=== PATIENT | female | born 1955 | race Caucasian/White ===

== ENCOUNTER 2021-04-26 14:34 | Emergency (ER) | payer MEDICARE, SELFPAY ==
[2021-04-26] VITALS (8 sets, daily range): BP systolic 150–200; BP diastolic 75–97; PULSE 59–75; RESP 12–20; TEMP 36–37.1; O2SAT 95–99; BMI 26.4
--- NOTE | ~2021-04-26 | CT_ITS ---
EXAMINATION: CT ANGIOGRAM OF THE CHEST WITH AND WITHOUT CONTRAST (CT PULMONARY ANGIOGRAM FOR PE) CLINICAL INFORMATION: Shortness of breath, cancer COMPARISON: None TECHNIQUE: Prior to contrast administration, noncontrast localization images were obtained. Subsequently, multidetector volumetric imaging was performed from the thoracic inlet to below the diaphragms following the administration of 80 mL Omnipaque 350 intravenous contrast. No contrast reaction reported Sagittal, coronal, and MIP oblique sagittal reformatted images were obtained on the CT workstation, uploaded to PACS, and reviewed. This CT examination was performed using dose optimization techniques as appropriate, variously including the following: *Automated exposure control *Adjustment of mA and/or kV according to patient size (this includes techniques or standardized protocols for targeted exams where dose is matched to indication/reason for exam; i.e. extremities or head) *Use of iterative reconstruction technique Total exam dose-length product 292 mGy-cm FINDINGS: QUALITY OF STUDY/CONTRAST BOLUS: Satisfactory. PULMONARY ARTERIES: No central or segmental pulmonary emboli. THORACIC AORTA: No aneurysm or dissection. LUNG: Low lung volumes with bibasilar atelectasis. No focal consolidation or mass. Mild bronchial wall thickening. PLEURA: No pleural effusion or pneumothorax. MEDIASTINUM: Normal heart size. No pericardial effusion. No hilar or mediastinal lymphadenopathy. No evidence of septal bowing or right heart strain. CHEST WALL/AXILLA: No axillary or internal mammary lymphadenopathy. OSSEOUS STRUCTURES: No acute or suspicious osseous abnormality. UPPER ABDOMEN: No adrenal mass. No reflux of contrast into the hepatic veins to suggest elevated right heart pressures. CT/CT angio chest PE protocol IMPRESSION: No pulmonary embolus seen.
--- NOTE | ~2021-04-26 | XR_ITS ---
EXAMINATION: XR CHEST CLINICAL INFORMATION: Chest pain COMPARISON: None TECHNIQUE: PA view of the chest was obtained. FINDINGS: There is no evidence of acute parenchymal disease, pneumothorax, or pleural effusion. Heart normal size. No evidence of pulmonary edema. A right internal jugular port catheter is seen in place with tip of the catheter in the distal superior vena cava. XR/XR chest 1V IMPRESSION: No acute disease.
--- NOTE | 2021-04-26 14:36 | ECG_ITS ---
Test Reason : cp Blood Pressure : / mmHG Vent. Rate : 065 BPM Atrial Rate : 065 BPM P-R Int : 190 ms QRS Dur : 096 ms QT Int : 416 ms P-R-T Axes : 063 028 028 degrees QTc Int : 432 ms Normal sinus rhythm Normal ECG When compared with ECG of 25-OCT-2019 17:02, No significant change was found Referred By: Generic ED Physician Electronically Signed By:Suresh Perez
[2021-04-26 15:06] LABS: Hematocrit 40.2 % (37.0-47.0); Hemoglobin 13.9 g/dl (12.0-16.0); Mean Corpuscular HGB Conc 34.6 g/dl (31.0-35.0); Mean Corpuscular Hemoglobin 30.2 pg (27.0-33.0); Mean Corpuscular Volume 87.4 fL (80.0-98.0); Mean Platelet Volume 10.2 fL (9.4-12.3); Platelet Count 284 X10*3/uL (160-400); Red Cell Distribution Width 12.9 % (11.0-16.0)
[2021-04-26 15:10] LABS: White Blood Count 39.6 X10*3/uL (4.8-10.8)
[2021-04-26 15:21] LABS: Anion Gap 14 (12-20); Blood Urea Nitrogen 18 mg/dL (9-16); Carbon Dioxide 30 mmol/L (22-29); Chloride 96 mmol/L (96-108); Creatinine Clr Calc Pharmacy 56.3; Estimated Glomerular Filt Rate > 60; Glucose Random 95 mg/dL (60-115); Potassium 3.5 mmol/L (3.3-5.1); Sodium 136 mmol/L (135-145)
[2021-04-26 15:26] LABS: Troponin-I High Sensitivity < 3.5 ng/L (<3.5-17.0)
[2021-04-26 15:30] LABS: Acanthocytes 1+ (0-2) /OIF; Band Neutrophils Percent 10 % (3-5); Giant Platelet PRESENT; Lymphocytes Absolute Manual 5.1 X10*3/uL (1.2-4.9); Lymphocytes Percent Manual 13 % (20-40); Monocytes Absolute Manual 1.6 X10*3/uL (0.1-1.2); Monocytes Percent Manual 4 % (2-11); Neutrophils Absolute Manual 32.9 X10*3/uL (2.0-8.3); Neutrophils Percent Manual 73 % (45-73); Ovalocytes 1+ (5-14) /OIF; Platelet Estimate NORMAL (NORMAL); Platelet Morphology Comment NOTED; RBC Morphology NORMAL
[2021-04-26 15:31] LABS: Dohle Bodies PRESENT; Toxic Vacuolation PRESENT
--- NOTE | 2021-04-26 17:37 | ED_ITS ---
HPI - Chest Pain General Chief Complaint: Chest Pain Stated Complaint: CHEST PAIN Time Seen by Provider: 04/26/21 17:37 Source: patient Mode of arrival: ambulatory Limitations: no limitations History of Present Illness HPI narrative: This is a 65-year-old female past medical history HTN, HLD, non-Hodgkin's B-cell lymphoma currently on chemotherapy being treated at the [facility] presents to the emergency department with severe body ache/pain and chest pain substernal, severe, stabbing nonradiating since today. Patient tells me that lying down makes the pain much worse, sitting forward makes it better. She tells me that she has been taking [id number] pain meds for the pain and has not been helping, she also took an oxycodone 5 and she tells me this did not touch her pain. Patient tells me that she got Rituxan on Thursday, and yesterday received an injection of Pegfilgrastim, to help with her leukopenia. She has never had 1 of these injections before. She reports vague lower abdominal pain as well. That is intermittent in nature. At this time she tells me that the abdominal pain is no longer present. Patient denies shortness of breath, leg swelling, nausea, vomiting, fevers, chills, calf pain. MD complaint: chest pain Onset (ago): day(s) (1) Timing of current episode: constant Prior episodes: No Onset: other (Day after receiving her 1st injection of Neulasta) Pain location: substernal Pain radiation: none Severity: severe Pain scale (0-10): 10 Quality: sharp Relieving factors: nothing Exacerbating factors: nothing Context: other (Patient has non-Hodgkin's lymphoma. Currently on chemotherapy) Treatment prior to arrival: none Related Data Previous Rx's Medication Instructions Recorded hydromorphone 2 mg tablet 2 mg PO Q4-6H PRN #10 tab 04/26/21 (Dilaudid) ondansetron 4 mg disintegrating 4 mg PO ONCE PRN #10 tab 04/26/21 tablet Allergies Allergy/AdvReac Type Severity Reaction Status Date / Time latex [LATEX] Allergy Unknown UNKNOWN Verified 04/26/21 14:42 lovastatin [LOVASTATIN] Allergy Unknown UNKNOWN Verified 04/26/21 14:42 niacin [NIACIN] Allergy Unknown UNKNOWN Verified 04/26/21 14:42 Penicillins [PENICILLINS] Allergy Unknown UNKNOWN Verified 04/26/21 14:42 pravastatin [PRAVASTATIN] Allergy Unknown UNKNOWN Verified 04/26/21 14:42 promethazine [From PHENERGAN] Allergy Unknown UNKNOWN Verified 04/26/21 14:42 shellfish derived Allergy Unknown UNKNOWN Verified 04/26/21 14:42 [SHELLFISH DERIVED] simvastatin [SIMVASTATIN] Allergy Unknown UNKNOWN Verified 04/26/21 14:42 Sulfa (Sulfonamide Allergy Unknown UNKNOWN Verified 04/26/21 14:42 Antibiotics) [SULFA (SULFONAMIDE ANTIBIOTICS)] METAL Allergy Unknown UNKNOWN Uncoded 11/10/19 15:39 Review of Systems Review of Systems: Constitutional : No Weight loss, No Fever, No Chills, No Fatigue, No Malaise ENT/Mouth : No sore throat, No Rhinorrhea Eyes: No Eye Pain, No Swelling, No Redness Cardiovascular : + Chest Pain, No SOB, No Dyspnea on Exertion, No Orthopnea, No Edema, No Palpitations Respiratory : No Cough, No Sputum, No Wheezing Gastrointestinal : No Nausea, No Vomiting, No Diarrhea, No Constipation, No abdominal Pain, No Hematochezia, No Melena Genitourinary : No Dysuria, No Urinary Frequency, No Hematuria, Musculoskeletal : No joint pain, No Myalgias, No Joint Swelling Skin : No Skin Lesions, No rash Neuro : No Weakness, No Numbness, No Dizziness, No Headache Psych : No Anxiety/Panic, No Depression All other systems reviewed and are negative Yes all other systems are reviewed and are negative [facility] Past Medical History Attestation statement: The following information was validated with the patient. Source: old records reviewed and nursing notes reviewed Medical History (Updated 04/27/21 @ 00:03 by MAXIMO Lloyd) B-cell lymphoma HLD (hyperlipidemia) HTN (hypertension) Social History Social History Alcohol intake: current Alcohol intake frequency: holidays/special occasions only Patient Tobacco Use Status: Never used Tobacco Use of substances other than those prescribed or required for medical reasons: No Advance Directives: No Advance Directives Information Provided: No Physical Exam Vital Signs: Vital Signs: Last Vital Signs Temp 98.5 F 04/26/21 17:42 Pulse 73 04/26/21 23:54 Resp 17 04/26/21 23:54 BP 153/80 H 04/26/21 23:54 Pulse Ox 96 04/26/21 23:54 BMI result Body Mass Index 26.4 vss Appearance: Alert.? Oriented X3.? No acute distress.? Patient appears extremely uncomfortable. Grimacing in pain. Head: Normocephalic, atraumatic, no step-offs or deformities Eyes: Pupils equal, round and reactive to light.? ENT: Pharynx normal.? Neck: Normal inspection.? Neck supple.? CVS: Normal heart rate and rhythm.? Pulses normal.? Respiratory: No respiratory distress.? Breath sounds normal.? Abdomen: Soft and nontender.? Skin: Skin warm and dry.? Normal skin color.? Normal skin turgor.? Extremities: No lower extremity edema.? No calf ttp. 5/5 strength to bilateral upper and lower extremities Back: No midline tenderness, no C-spine tenderness, full range of motion, no CVA tenderness bilaterally Neuro: Oriented X 3.? No motor deficit.? No sensory deficit. CN 2-12 intact Course Reevaluation(s) Reevaluation #1: Patient noted to have a significant leukocytosis, unlikely that this is from infection likely that this is secondary to patient receiving Neulasta injection yesterday. No acute electrolyte abnormalities. Troponin less than 3.5. EKG nonischemic. Unlikely that this is ACS. Time: 00:04 Reevaluation #2: Patient CTA negative for PE. Patient's pain improved with that Dilaudid. At this time patient will be discharged home I suspect the patient's pain is secondary to Neulasta injection. Advised her to return with new or worsening symptoms. And follow-up with her PCP and Oncology as soon as possible. Comfortable with discharge home Time: 00:05 MDM - Chest Pain MDM Narrative Medical decision making narrative: 180 65 yo F pmhx htn, hld, non Hodgkin's lymphoma presenting with severe body aches and pains, and chest pain substernal, nonradiating, stabbing 10/10 constant. Physical examination significant for a 65-year-old female lying on the stretcher who appears to be extremely uncomfortable. Plan laboratory studies, imaging, EKG. Will rule out ACS and PE. Given patient's history and physical exam findings it is likely that patient's pain is secondary to initiation of new medication. However other etiologies will be ruled out. Medical Records Data Attestation: I reviewed the patient's medical records. Lab Data Attestation: I reviewed the patient's lab results. Result diagrams: 04/26/21 15:00 04/26/21 15:00 Labs: Lab Results 04/26/21 04/26/21 04/26/21 Range/Units 15:00 15:00 15:00 WBC 39.6 H* (4.8-10.8) X10*3/uL RBC 4.60 (4.20-5.50) X10*6/uL Hgb 13.9 (12.0-16.0) g/dl Hct 40.2 (37.0-47.0) % MCV 87.4 (80.0-98.0) fL MCH 30.2 (27.0-33.0) pg MCHC 34.6 (31.0-35.0) g/dl RDW 12.9 (11.0-16.0) % Plt Count 284 (160-400) X10*3/uL MPV 10.2 (9.4-12.3) fL Immature Gran % (Auto) Cancelled Neut % (Auto) Cancelled Lymph % (Auto) Cancelled Den[place] % (Auto) Cancelled Eos % (Auto) Cancelled Baso % (Auto) Cancelled Lymph # (Auto) Cancelled [place] # (Auto) Cancelled Eos # (Auto) Cancelled Baso # (Auto) Cancelled Abs Immat Gran (auto) Cancelled Absolute Neuts (auto) Cancelled Absolute Nucleated RBC 0.000 (0.0-0.012) X10*3/uL Nucleated RBC % (auto) 0.0 (0.0-0.2) /100WBC Neutrophils % (Manual) 73 (45-73) % Band Neutrophils % 10 H (3-5) % Lymphocytes % (Manual) 13 L (20-40) % Monocytes % (Manual) 4 (2-11) % Abs Neuts (Manual) 32.9 H (2.0-8.3) X10*3/uL Lymphocytes # (Manual) 5.1 H (1.2-4.9) X10*3/uL Monocytes # (Manual) 1.6 H (0.1-1.2) X10*3/uL Toxic Vacuolation PRESENT Dohle Bodies PRESENT Platelet Estimate NORMAL (NORMAL) Giant Platelets PRESENT Plt Morphology Comment NOTED RBC Morphology NORMAL Ovalocytes 1+ (5-14) /OIF Acanthocytes (Spur) 1+ (0-2) /OIF ESR (0-20) MM/HR Sodium 136 (135-145) mmol/L Potassium 3.5 (3.3-5.1) mmol/L Chloride 96 (96-108) mmol/L Carbon Dioxide 30 H (22-29) mmol/L Anion Gap 14 (12-20) BUN 18 H (9-16) mg/dL Creatinine 0.93 (0.5-1.4) mg/dL Estim Creat Clear Calc 56.3 Estimated GFR > 60 Random Glucose 95 (60-115) mg/dL Calcium 10.0 (8.4-10.2) mg/dL Troponin I High Sens < 3.5 (<3.5-17.0) ng/L C-Reactive Protein (< or = 0.50) mg/dL 04/26/21 04/26/21 Range/Units 18:18 18:19 WBC (4.8-10.8) X10*3/uL RBC (4.20-5.50) X10*6/uL Hgb (12.0-16.0) g/dl Hct (37.0-47.0) % MCV (80.0-98.0) fL MCH (27.0-33.0) pg MCHC (31.0-35.0) g/dl RDW (11.0-16.0) % Plt Count (160-400) X10*3/uL MPV (9.4-12.3) fL Immature Gran % (Auto) Neut % (Auto) Lymph % (Auto) Den[place] % (Auto) Eos % (Auto) Baso % (Auto) Lymph # (Auto) [place] # (Auto) Eos # (Auto) Baso # (Auto) Abs Immat Gran (auto) Absolute Neuts (auto) Absolute Nucleated RBC (0.0-0.012) X10*3/uL Nucleated RBC % (auto) (0.0-0.2) /100WBC Neutrophils % (Manual) (45-73) % Band Neutrophils % (3-5) % Lymphocytes % (Manual) (20-40) % Monocytes % (Manual) (2-11) % Abs Neuts (Manual) (2.0-8.3) X10*3/uL Lymphocytes # (Manual) (1.2-4.9) X10*3/uL Monocytes # (Manual) (0.1-1.2) X10*3/uL Toxic Vacuolation Dohle Bodies Platelet Estimate (NORMAL) Giant Platelets Plt Morphology Comment RBC Morphology Ovalocytes /OIF Acanthocytes (Spur) /OIF ESR 11 (0-20) MM/HR Sodium (135-145) mmol/L Potassium (3.3-5.1) mmol/L Chloride (96-108) mmol/L Carbon Dioxide (22-29) mmol/L Anion Gap (12-20) BUN (9-16) mg/dL Creatinine (0.5-1.4) mg/dL Estim Creat Clear Calc Estimated GFR Random Glucose (60-115) mg/dL Calcium (8.4-10.2) mg/dL Troponin I High Sens (<3.5-17.0) ng/L C-Reactive Protein 0.33 (< or = 0.50) mg/dL ECG Data ECG #1: Attestation: I personally reviewed and interpreted this ECG as follows: ECG interpretation date: 04/26/21 ECG interpretation time: 18:17 Prior ECG tracings: available for review Interpretation: Ventricular rate of 65, MN normal normal, QT/QTC normal. EKG shows normal sinus rhythm. No ST elevations or inversions concerning risky Shannon. No significant changes when compared to EKG from October 2019 Critical Care Time Critical Care Time Critical Care Time: No Discharge Plan Discharge Clinical Impression: Chest pain not due to acute coronary syndrome, Whole body pain Patient Disposition: Home, Self-Care Instructions: Pain Management in Older Adults (DC), Pain Management (ED), Noncardiac Chest Pain (ED), Opioid Safety (ED), Chest Wall Pain (ED) Additional Instructions: Take your medications as prescribed. If you were prescribed antibiotics today, it is important that you take your medication to their entirety, do not skip any doses, do not finish them early. Follow-up with your primary care provider this week. Please follow-up with your oncologist. Return to the emergency department with new or worsening symptoms. Such as c hest pain, shortness of breath, nausea, vomiting, fevers, chills, body aches, headache, dizziness. In case of emergency call 911 Your prescribed a narcotic. Please do not drive while taking this. Please to not operate any vehicles while on this medication. Your EKG looked good today. Your cardiac enzyme was negative. Your CT angiogram did not show any signs of pulmonary embolism. I suspect this pain is secondary to Neulasta Your white blood cell count was elevated today at 39.6 likely secondary to Neulasta as well. Prescriptions: New hydromorphone [Dilaudid] 2 mg tablet 2 mg PO Q4-6H PRN (Reason: pain) Qty: 10 0RF Rx Instructions: Patient can partially fill this prescription upon request ondansetron 4 mg tablet,disintegrating 4 mg PO ONCE PRN (Reason: nausea and vomiting) Qty: 10 0RF Referrals: Gilbert Angulo PA [Primary Care Provider] - 2 days Stand Alone Forms: Work/School Release
[2021-04-26 18:38] LABS: C Reactive Protein 0.33 mg/dL (< or = 0.50)
[2021-04-26] MEDS: 0.9 % Sodium Chloride 500 ML IV (18:44)
[2021-04-26] MEDS: ondansetron HCL 4 MG/2 ML VIAL IVPUSH (18:46)
[2021-04-26] MEDS: Morphine Sulfate 4 MG/ML CARTRIDGE IVPUSH (18:47)
[2021-04-26 18:58] LABS: Erythrocyte Sedimentation Rate 11 MM/HR (0-20)
[2021-04-26] MEDS: HYDROmorphone HCl 0.5 MG/0.5 ML SYRINGE IVPUSH (19:30)
[2021-04-26] MEDS: diphenhydrAMINE HCL 50 MG/ML VIAL IVPUSH (20:39)
[2021-04-26] MEDS: Metoclopramide HCl 10 MG/2 ML VIAL IVPUSH (20:40)
[2021-04-26] MEDS: iohexoL 350 MG/ML 100 ML INFUS..BTL IV (21:24)
[2021-04-27 00:16] VITALS: RESP 12
[2021-04-27] MEDS: HYDROmorphone HCl 0.5 MG/0.5 ML SYRINGE 0.25 MG IVPUSH (00:16)
== END 2021-04-27 00:53 | disposition home or self-care (01) ==
PROVIDERS: Physician Assistant; Emergency Provider Emergency Medicine Emergency Medical Services; PCP Physician Assistant Medical
DX: R07.9 Chest pain, unspecified (principal); M79.10 Myalgia, unspecified site; Z79.899 Other long term (current) drug therapy
CPT/HCPCS: 36415; 71045; 71275; 80048; 84484; 85007; 85027; 85652; 86140; 93005; 96361; 96374; 96375; 96376; 99284; 99285; J1170; J1200; J2270; J2405; J2765; Q9967

== ENCOUNTER 2024-07-04 13:17 | Outpatient (REF) | payer MEDICARE, SELFPAY ==
[2024-07-04 14:53] LABS: Erythrocyte Sedimentation Rate 9 MM/HR (0-20)
== END 2024-07-04 13:18 | disposition home or self-care (01) ==
LOC: HO.LAB 13:17
PROVIDERS: PCP Physician Assistant Medical; Visit Provider Psychiatry & Neurology Neurology
DX: G20.A1 Parkinson's disease without dyskinesia, without mention of fluctuations (principal)
CPT/HCPCS: 36415; 82550; 85652